=== PATIENT | male | born 1955 | race Caucasian/White ===

== ENCOUNTER 2017-03-10 14:19 | Emergency (ER) | payer MEDICAID ==
[2017-03-10] MEDS ORDERED: predniSONE 20 MG TAB PO ONE (14:45)
[2017-03-10] MEDS ORDERED: FAMOTIDINE 20 MG TAB PO ONE (14:45)
--- NOTE | 2017-03-10 14:55 | EDPHY ---
H & P Time Seen by Provider: 03/10/17 14:26 HPI/ROS: HPI Rash. 61-year-old male by private vehicle. This patient reports that he was admitted to a local hospital recently for a cellulitis involving his right foot. This infection was resistant to Keflex and Bactrim. He was treated with IV Unasyn in the hospital and [facility]. He finished his antibiotics a little more than 2 weeks ago. He reports that he also got a new bed about 2 weeks ago with new sheets. He then developed a rash over his torso and arms about 10 days ago. He describes this as very itchy. He has tried various [id number] medications and creams and with no relief. He has also been taking Benadryl and has had no relief. He reports that the rash primarily involves the back of his arms and his entire back she has had some on the front of his arms and his chest. No associated fever. He was recently down in [place]. Otherwise no travel. Denies any new medications. No change in diet. He has not had a rash like this in the past. ROS: Constitutional: No fever, no chills. No weakness. Eyes: No discharge. No changes in vision. ENT: No sore throat. No nasal congestion or rhinorrhea. Respiratory: No cough. No shortness of breath. Cardiac: No chest pain, no palpitations. Gastrointestinal: No abdominal pain, no vomiting, no diarrhea. Genitourinary: No hematuria. No dysuria or increased frequency with urination. Musculoskeletal: No back pain. No neck pain. No myalgias or arthralgias. Skin: As above. Neurological: No headache. No focal weakness or altered sensation. Past medical history: Hypertension, appendectomy, tonsillectomy, hernia. Primary care is through [facility]. Social history: Here by himself. Nonsmoker. Drinks alcohol socially. Physical Exam: General Appearance: Alert, no distress. Moderately obese. This patient is responding to questions appropriately and in full sentences. This patient appears well-hydrated and well-nourished. Eyes: Pupils equal and round no pallor or injection. No lid edema, erythema or injection. ENT, Mouth: Mucous membranes are moist. The pharyngeal tissues are unremarkable. No edema or swelling. No asymmetry suggestive of abscess. No erythema or exudates. No oral involvement. Respiratory: There are no retractions, lungs are clear to auscultation with good air movement bilaterally. Cardiovascular: Regular rate and rhythm. Tachycardia. No murmur appreciated. Neurological: Motor sensory function is grossly intact. Cranial nerves are normal. Gait is normal. Skin: Warm and dry, erythematous, macular papular rash with pox and some scabbed over areas from him scratching over his entire back, the posterior aspect of his arms and to a lesser degree his abdominal area and chest. It is blanching. I do not appreciate any petechiae. Musculoskeletal: Neck is supple and nontender. No cervical lymphadenopathy. Extremities are symmetrical. All joints range without pain or impingement. I evaluated his right foot and ankle which is the site of his cellulitis in the recent for his recent admission and antibiotic treatment. There is no evidence of cellulitis. He does have a fine pock/vesicular like rash on the medial aspect of his right foot. There is no significant surrounding erythema or warmth. No edema. No evidence of cellulitis. The right foot is neurovascularly intact. Psychiatric: No agitation. No depression. Database: EKG: Imaging: Procedures: Emergency department course: His vital signs were reviewed. He is hypertensive. He is also tachycardic. He tells me that his heart rate is usually fast. He states that he is out of shape and also he has been drinking a lot of caffeine today studying for a test. He does not have a fever. He denies any history of fever. He states that his blood pressures often fluctuate. He has not been compliant with blood pressure medications. 3:35 p.m., patient re-evaluated. Resting comfortably at this time. States he feels better. Blood pressure is 131/94. quality assurance monitor final shows a narrow complex sinus rhythm with ventricular rate of 112. 4:20 p.m., patient re-evaluated. Resting comfortably at this time. He states that he feels better. Not as itchy. His heart rate is still high at 1 tended 112. Narrow complex sinus rhythm on the monitor. He again tells me that he drink a lot of caffeine today and his heart rate usually runs side. I discussed my concern. I discussed observation admission with him. He does not want to do this. He is requesting discharge. Plan will be to have him follow up with a manager nursing, Dr. López Douglas, for evaluation of his rash. I will continue him on oral steroids for another 4 days without taper. I also discussed follow-up with his primary care physician through [facility] for evaluation of his tachycardia and his hypertension. He reassured me that he would do this. Return to emergency department precautions were thoroughly reviewed with him. All of his questions were answered. He was discharged in good condition. Differential Diagnosis: The differential diagnosis on this patient includes but is not limited to hypersensitivity rash, drug reaction. Scabies, cellulitis, zoster unlikely. This represents a partial list of diagnoses considered. These considerations are based on history, physical exam, past history, reassessment and diagnostic testing. Smoking Status: Never smoked Constitutional: Initial Vital Signs Temperature (C) 36.7 C 03/10/17 14:26 Heart Rate 120 H 03/10/17 14:26 Respiratory Rate 14 03/10/17 14:26 Blood Pressure 163/100 H 03/10/17 14:26 O2 Sat (%) 90 L 03/10/17 14:26 O2 Delivery Mode Room Air Allergies/Adverse Reactions: No Known Allergies Allergy (Unverified 03/10/17 14:24) Home Medications: Medication Instructions Recorded Miscellaneous Medical Supply [NO 0 ea MISC AD 08/31/11 HOME MEDS] Lupron 03/10/17 predniSONE [prednisone 20mg (RX)] 60 mg PO DAILY #12 tab 03/10/17 Medical Decision Making - Data Points Medications Given: Discontinued Medications Famotidine (Pepcid) 40 mg PO EDNOW ONE Stop: 03/10/17 14:46 Last Admin: 03/10/17 14:52 Dose: 40 mg Prednisone (Prednisone) 80 mg PO EDNOW ONE Stop: 03/10/17 14:46 Last Admin: 03/10/17 14:52 Dose: 80 mg Departure - Departure Disposition: Home, Routine, Self-Care Clinical Impression: Rash, Hypertension, Tachycardia Condition: Good Instructions: Acute Rash (ED), Hypertension (ED) Additional Instructions: Read and follow provided instructions. It is very important you follow up with your primary care physician at [facility] for evaluation of your elevated heart rate as well as elevated blood pressure. I will also provide you a primary care physician referral at the [facility]. Called Dr. Anthony Douglas of the dermatology service for re-evaluation of your rash this week. Take medication as prescribed through entire course of treatment. You can also continue to take Benadryl at 25-50 mg every 6 hours as needed for itching during the day. This medication will dry your mouth out and make you sleepy. Return to the emergency department immediately as discussed t for worsening rash , lightheadedness, chest pain, shortness of breath, palpitations, fever or other serious concerns. Referrals: López Douglas MD [Medical Doctor] - As per Instructions Jose Miguel Centeno MD [[facility] [place] - As per Instructions [facility],. [Clinic] - As per Instructions Prescriptions: predniSONE [prednisone 20mg (RX)] 60 mg PO DAILY #12 tab
[2017-03-10 16:11] VITALS: PULSE 108; RESP 20; O2SAT 93
[2017-03-10 16:26] VITALS: BP 162/87
[2017-03-10 16:45] VITALS: TEMP 97.7
== END 2017-03-10 16:46 | disposition home or self-care (01) ==
DX: R21 Rash and other nonspecific skin eruption (principal); R00.0 Tachycardia, unspecified; I10 Essential (primary) hypertension

== ENCOUNTER 2017-04-29 21:28 | Inpatient (IN) | payer MEDICAID ==
--- NOTE | 2017-04-29 22:06 | EDPHY ---
H & P Stated Complaint: "infection"/rash R foot/leg, spreading; onset months ago HPI/ROS: HPI CHIEF COMPLAINT: Cellulitis HISTORY OF PRESENT ILLNESS: This patient is 61-year-old male, past medical history for alcoholism, presents emergency room with a rash is progressively getting worse over the past 9 months. However he reports that is acutely worse over the past week. Patient has a rash that is erythematous warmth to the legs bilaterally spreads throughout his legs, abdomen, worse around his periumbilical region back and arms. He states it does itch. Says it hurts more than normal. He denies fever but does have chills. Decided come the emergency room as the rash is acutely worse. He states there is pus coming from his abdominal umbilical rash. Past Medical History: Alcoholism, attention deficit hyperactivity disorder, previous dermatitis Past Surgical History: No recent surgery but has had an appendectomy tonsillectomy Social History: Denies daily use of drugs alcohol tobacco products. Family History: Noncontributory ROS REVIEW OF SYSTEMS: A comprehensive 10 point review of systems is otherwise negative aside from elements mentioned in the history of present illness. Exam Constitutional triage nursing summary reviewed, vital signs reviewed, awake/ alert. Eyes normal conjunctivae and sclera, EOMI, PERRLA. HENT normal inspection, atraumatic, moist mucus membranes, no epistaxis, neck supple/ no meningismus, no raccoon eyes. Respiratory clear to auscultation bilaterally, normal breath sounds, no respiratory distress, no wheezing. Cardiovascular rate normal, regular rhythm, no murmur, no edema, distal pulses normal. Gastrointestinal soft, non-tender, no rebound, no guarding, normal bowel sounds, no distension, no pulsatile mass. Genitourinary no CVA tenderness. Musculoskeletal no midline vertebral tenderness, full range of motion, no calf swelling, no tenderness of extremities, no meningismus, good pulses, neurovascularly intact. Skin diffuse patchy erythematous rash scaly, worse on the bilateral anterior legs. However it is diffuse throughout. It does look somewhat cellulitic on the bilateral legs and around his periumbilical region. Neurologic awake, alert and oriented x 3, AAOx3, moves all 4 extremities equally, motor intact, sensory intact, CN II-XII intact, normal cerebellar, normal vision, normal speech. Psychiatric normal mood/affect. Heme/Lymph/Immune no lymphadenopathy. Differential Diagnosis: Includes but is not limited to in a particular order, cellulitis, MRSA infection, strep infection, dermatitis, vasculitis, scabies, Swiss scabies, super infection scabies Medical Decision Making: Plan for this patient IV establishment blood work, blood cultures, inflammatory markers, dose of IV Unasyn, Solu-Medrol, Benadryl, morphine for pain control and re-evaluate. Re-evaluation: 232: Blood work has been reviewed. No high leukocytosis. Inflammatory markers are elevated. My suspicion is this is most likely dermatitis possibly superimposed infection light less likely scabies. Given the extent of this in inflammation this patient be admitted to the hospital for further treatment of this. I did order him IV Unasyn, Solu-Medrol Benadryl morphine for pain control. He appears well nontoxic will admit for further management of this. Source: Patient - Personal History Current Tetanus/Diphtheria Vaccine: Yes - Medical/Surgical History Hx Asthma: No Hx Chronic Respiratory Disease: No Hx Diabetes: No Hx Cardiac Disease: Yes Hx Renal Disease: No Hx Cirrhosis: No Hx Alcoholism: No Hx HIV/AIDS: No Hx Splenectomy or Spleen Trauma: No Other PMH: PSHx: appy, tonsils, hernia. PMHx: denies - Social History Smoking Status: Never smoked Constitutional: Initial Vital Signs Temperature (C) 36.7 C 04/29/17 21:30 Heart Rate 106 H 04/29/17 21:30 Respiratory Rate 16 04/29/17 21:30 Blood Pressure 128/80 H 04/29/17 21:30 O2 Sat (%) 93 04/29/17 21:30 O2 Delivery Mode Room Air Allergies/Adverse Reactions: No Known Allergies Allergy (Unverified 03/10/17 14:24) Home Medications: Medication Instructions Recorded ALPRAZolam [Xanax 0.5 MG (*)] 0.5 mg PO BID 04/30/17 Amphet Asp and D/Amphet [Adderall 10 mg PO DAILY 04/30/17 10 MG (*)] Dextroamphetamine ER [Dexedrine 15 15 mg PO 5XD 04/30/17 MG (*)] Multivitamins [Multivitamin (*)] 1 each PO DAILY 04/30/17 Naltrexone HCl [Revia 50mg (RX)] 50 mg PO DAILY 04/30/17 Medical Decision Making - Data Points Laboratory Results: Laboratory Results 04/29/17 22:55 04/29/17 22:55 Medications Given: Hydrocodone Bitart/Acetaminophen ([place] 5/325) 1 - 2 tab PO Q4HRS PRN PRN Reason: Pain, Moderate Able to Take PO Stop: 05/10/17 00:26 Last Admin: 04/30/17 22:41 Dose: 2 tab Alprazolam (Xanax) 0.5 mg PO BID [facility] Stop: 10/27/17 20:59 Last Admin: 04/30/17 21:09 Dose: 0.5 mg Clobetasol Propionate (Temovate Ointment) 1 christel TP TID [facility] Stop: 05/10/17 15:59 Last Admin: 04/30/17 21:09 Dose: 1 christel Dextroamphetamine Sulfate (Dexedrine) 15 mg PO 5XD [facility] Stop: 10/27/17 17:59 Last Admin: 04/30/17 21:09 Dose: 15 mg Enoxaparin Sodium (Lovenox) 40 mg SC DAILY [facility] Stop: 10/27/17 08:59 Last Admin: 04/30/17 10:48 Dose: 40 mg Potassium Chloride (Klor-Con) 10 meq PO DAILY MANAS Stop: 10/27/17 17:29 Last Admin: 04/30/17 18:31 Dose: 10 meq Discontinued Medications Diphenhydramine HCl (Benadryl Injection) 25 mg IVP EDNOW ONE Stop: 04/29/17 22:28 Last Admin: 04/29/17 23:10 Dose: 25 mg Furosemide (Lasix) 40 mg PO ONCE ONE Stop: 04/30/17 17:26 Last Admin: 04/30/17 18:31 Dose: 40 mg Sodium Chloride (Ns) 1,000 mls @ 0 mls/hr IV EDNOW ONE; Wide Open PRN Reason: Protocol Stop: 04/29/17 22:25 Last Admin: 04/29/17 23:05 Dose: 1,000 mls Ampicillin Sodium/Sulbactam (Sodium 3 gm/ Sodium Chloride) 100 mls @ 200 mls/ hr IV EDNOW ONE PRN Reason: Protocol Stop: 04/29/17 22:56 Last Admin: 04/29/17 23:25 Dose: 100 mls Sodium Chloride (Ns) 1,000 mls @ 125 mls/hr IV CONT MANAS Stop: 10/27/17 00:29 Last Admin: 04/30/17 01:11 Dose: 1,000 mls Ampicillin Sodium/Sulbactam (Sodium 1.5 gm/ Sodium Chloride) 50 mls @ 200 mls/ hr IV Q6H MANAS PRN Reason: Protocol Stop: 05/30/17 04:59 Last Admin: 04/30/17 10:54 Dose: 50 mls Methylprednisolone Sodium Succinate (Solu-Medrol) 125 mg IVP EDNOW ONE Stop: 04/29/17 22:28 Last Admin: 04/29/17 23:12 Dose: 125 mg Morphine Sulfate (Morphine) 4 mg IVP EDNOW ONE Stop: 04/29/17 22:28 Last Admin: 04/29/17 23:13 Dose: 4 mg Departure - Departure Disposition: [facility] Clinical Impression: Dermatitis Cellulitis Qualifiers: Site of cellulitis: unspecified site Qualified Code(s): L03.90 - Cellulitis, unspecified Condition: Fair
[2017-04-29] MEDS ORDERED: NS 1,000 ML IV ONE (22:24)
[2017-04-29] MEDS ORDERED: methylPREDNISolone SOD SUCC 125 MG/2 ML VIAL IVP ONE (22:27)
[2017-04-29] MEDS ORDERED: AMPICILLIN/SULBACTAM 3 GM in NS 100 ML IV ONE (22:27)
[2017-04-29 23:07] LABS: ABSOLUTE IMMATURE GRANULOCYTES 0.18 10^3/uL (0.00-0.10); ADD DIFF? NO; ADD MORPH? NO; ADD SCAN? NO; ATYPICAL LYMPHOCYTE FLAG 10 (0-99); FRAGMENT RBC FLAG 0 (0-99); HEMATOCRIT 44.6 % (40.0-51.0); HEMOGLOBIN 15.6 g/dL (13.7-17.5); LEFT SHIFT FLG 10 (0-99); LIPEMIA HEMOLYSIS FLAG 90 (0-99); MEAN PLATELET VOLUME 10.1 fL (8.7-11.7); PLATELET CLUMPS FLAG 0 (0-99); PLATELET COUNT 210 10^3/uL (150-400); RED BLOOD CELL COUNT 4.46 10^6/uL (4.40-6.38); RED CELL DISTRIBUTION WIDTH 13.4 % (11.5-15.2)
[2017-04-29 23:16] LABS: SEDIMENTATION RATE 9 MM/HR (0-20)
[2017-04-29 23:17] LABS: INR 1.07 (0.83-1.16); PROTIME(PATIENT) 13.8 SEC (12.0-15.0)
[2017-04-29 23:18] LABS: APTT 32.5 SEC (23.0-38.0)
[2017-04-29 23:21] LABS: ALANINE AMINOTRANSFERASE 30 IU/L (21-72); ALKALINE PHOSPHATASE 70 IU/L (38-126); ANION GAP 11 mEq/L (8-16); ASPARTATE AMINOTRANSFERASE 36 IU/L (17-59); BILIRUBIN-CONJUGATED 0.3 mg/dL (0.0-0.5); BILIRUBIN-UNCONJUGATED 0.7 mg/dL (0.0-1.1); C-REACTIVE PROTEIN 52.6 mg/L (<10.0); CALCIUM 8.6 mg/dL (8.5-10.4); CARBON DIOXIDE 25 mEq/l (22-31); CHLORIDE 99 mEq/L (97-110); CREATININE 0.9 mg/dL (0.7-1.3); GLOMERULAR FILTRATION RATE > 60; GLUCOSE 95 mg/dL (70-100); POTASSIUM 4.3 mEq/L (3.5-5.2); SODIUM 135 mEq/L (134-144); SPECIMEN HEMOLYSIS 124; TOTAL PROTEIN 6.8 g/dL (6.3-8.2)
[2017-04-29 23:40] LABS: PROCALCITONIN 0.09 ng/mL (0.02-0.10)
[2017-04-30] MEDS ORDERED: diphenhydrAMINE 25 MG CAP PO PRN (00:27)
[2017-04-30] MEDS ORDERED: ACETAMINOPHEN 325 MG TAB PO PRN (00:27)
[2017-04-30] MEDS ORDERED: LORazepam 0.5 MG TAB PO PRN (00:27)
[2017-04-30] MEDS ORDERED: ONDANSETRON 4 MG/2 ML VIAL IVP PRN (00:27)
[2017-04-30] MEDS ORDERED: NS 1,000 ML IV SCH (00:30)
[2017-04-30] MEDS: HYDROCODONE/APAP 5/325 TAB PO PRN ×4 (01:49→22:41)
[2017-04-30] MEDS: AMPICILLIN/SULBACTAM 1.5 GM in NS 50 ML IV SCH ×2 (05:13→10:54)
[2017-04-30] MEDS ORDERED: hydrOXYzine HCL 25 MG TAB PO PRN (05:14)
--- NOTE | 2017-04-30 08:06 | PDGENHP ---
History and Physical - Chief Complaint Rash to legs and abdomen - History of Present Illness Source - patient able to provide history. He is a little tangential but redirectable and overall history given remains consistent. EMR reviewed and case discussed with ED provider. HPI - 61 yo M with pmhx significant for remote etoh dependence, obesity, ADHD who presents to the ED with complaints increasing rash, redness to R>L leg and abdomen. Patient reports itching at rash sites and drainage from site at umbilicus. He denies any fevers/chills. he reports his rash has been on going for the past 9 months however in the last 1 week patient reports rash has extended upward to include abdomen and hands in addition to worsening on his lower legs. He reports developing small pustules before the drainage started at his umbilicus. Patient with history of umbilical hernia repair remotely. no known postop wound infection history. Patient reports history of impetigo in his youth but has otherwise not had issues with abscess or rashes until 9 months ago. Patient reports he was hospitalized previously and prescribed an oral antibiotic and steroid however the antibiotic was escribed and so he only took the antibiotic. He reports worsening of his rash. I am unable to clarify with the patient how long ago this was. Patient states he also used a topical antibiotic and antifungal with some improvement in his rash but it is unclear how long patient stayed on this therapy or if he was able to be compliant. History Information - Allergies/Home Medication List Allergies/Adverse Reactions: No Known Allergies Allergy (Unverified 03/10/17 14:24) Home Medications: NK [No Known Home Meds] 04/29/17 [Last Taken Unknown] I have personally reviewed and updated: family history, medical history, social history, surgical history - Past Medical History Additional medical history: remote hx etoh. ADHD. chronic rash. obesity - Surgical History Additional surgical history: Appendectomy. Tonsillectomy and Adenoidectomy. umbilical hernia repair - Family History Additional family history: denies DM, HTN. father - pacreatic cancer (advanced age). mother - CVA (advanced age) - Social History Smoking Status: Never smoked Alcohol Use: Sober (quit "years" ago) Drug Use: None Additional social history: Lives alone. COR - FULL. Review of Systems Review of Systems: ROS: 10pt was reviewed & negative except for what was stated in HPI & below Constitutional: Denies: chills, fever, malaise EENMT: Reports: nose congestion (chronic, reports right nostril with some bleeding resolved yesterday. ). Denies: ear pain, blurred vision, eye pain, sore throat Cardiac: Denies: chest pain, edema, palpitations Respiratory: Reports: no symptoms. Denies: cough, shortness of breath Gastrointestinal: Reports: no symptoms, abdominal pain (superficial abdominal pain no abdominal aching. ). Denies: vomitting, diarrhea, nausea Genitourinary: Reports: other (reports urine is darker but unsure if any blood. ). Denies: dysuria, hematuria Muscolosketal: Reports: joint pain (chronic arthritis). Denies: muscle pain Skin: Reports: change in color, rash (see hpi.). Denies: lesions Neurological: Reports: emotional problems (ADHD), paresthesia ("burning" at rash sites. ). Denies: anxiety, depressed, headache, weakness Physical Exam Physical Exam: Selected Entries 04/29/17 21:30 Blood Pressure Automatic Method Heart Rate 106 H Respiratory 16 Rate O2 Sat (%) 93 Temperature (C) 36.7 C Blood Pressure 128/80 H Mean Arterial 96 Pressure (MAP) O2 Delivery Room Air Mode Temperature Oral Source Temp Pulse Resp BP Pulse Ox 36.8 C 106 H 18 124/79 H 89 L 04/30/17 03:35 04/30/17 03:35 04/30/17 03:35 04/30/17 03:35 04/30/17 03:35 Constitutional: no apparent distress, chronically ill appearing, obese, uncomfortable, unkempt Eyes: PERRL, anicteric sclera, EOMI Ears, Nose, Mouth, Throat: moist mucous membranes, other (no nasal discharge), No oral thrush, No poor dentition Cardiovascular: regular rate and rhythym, no murmur, rub, or gallop, edema ( trace feet/lower legs) Peripheral Pulses: 2+: dorsalis-pedis (R), dorsalis-pedis (L) Respiratory: no respiratory distress, no rales or rhonchi, clear to auscultation Gastrointestinal: normoactive bowel sounds, no palpable masses, tenderness ( superficial ttp over umbilicus at rash site. no TTP with deep palpation but limited 2/2 patient protuberant obese abdomen. ) Skin: warm, erythema, rash (rash with punctate erythematous lesions clustered some with scabbing some with evidence of excoriations. minimal amount of crusting and drainage at the umbilicus but nothing expressible for possible swab collection. . no evidence of intertriginous lesions with tracking (i.e. scabies). patient with various patches bilateral feet, lower legs scant isolated spots upper legs. fingers/hands. face without similar lesions but some erythema homogenously to face stopping just below the chin line. no induration or fluctuance appreciated at any of the sites. ), No mottled, No pressure ulcer Musculoskeletal: full muscle strength, normal joint ROM, No no muscle tenderness , No generalized weakness Neurologic: AAOx3, sensation intact bilaterally, CN II-XII Intact, other ( nonfocal. ), No weakness Psychiatric: not encephalopathic, anxious, other (patient is tangential in conversation but redirectable. ), No flat affect, No poor insight, No poor judgement, No poor memory Lab Data & Imaging Review 04/29/17 22:55 04/29/17 22:55 WBC 9.15 10^3/uL (3.80-9.50) 04/29/17 22:55 RBC 4.46 10^6/uL (4.40-6.38) 04/29/17 22:55 Hgb 15.6 g/dL (13.7-17.5) 04/29/17 22:55 Hct 44.6 % (40.0-51.0) 04/29/17 22:55 MCV 100.0 fL (81.5-99.8) H 04/29/17 22:55 MCH 35.0 pg (27.9-34.1) H 04/29/17 22:55 MCHC 35.0 g/dL (32.4-36.7) 04/29/17 22:55 RDW 13.4 % (11.5-15.2) 04/29/17 22:55 Plt Count 210 10^3/uL (150-400) 04/29/17 22:55 MPV 10.1 fL (8.7-11.7) 04/29/17 22:55 Neut % (Auto) 58.1 % (39.3-74.2) 04/29/17 22:55 Lymph % (Auto) 14.3 % (15.0-45.0) L 04/29/17 22:55 [place] % (Auto) 12.8 % (4.5-13.0) 04/29/17 22:55 Eos % (Auto) 11.7 % (0.6-7.6) H 04/29/17 22:55 Baso % (Auto) 1.1 % (0.3-1.7) 04/29/17 22:55 Nucleat RBC Rel Count 0.0 % (0.0-0.2) 04/29/17 22:55 Absolute Neuts (auto) 5.32 10^3/uL (1.70-6.50) 04/29/17 22:55 Absolute Lymphs (auto) 1.31 10^3/uL (1.00-3.00) 04/29/17 22:55 Absolute Monos (auto) 1.17 10^3/uL (0.30-0.80) H 04/29/17 22:55 Absolute Eos (auto) 1.07 10^3/uL (0.03-0.40) H 04/29/17 22:55 Absolute Basos (auto) 0.10 10^3/uL (0.02-0.10) 04/29/17 22:55 Absolute Nucleated RBC 0.00 10^3/uL (0-0.01) 04/29/17 22:55 Immature Gran % 2.0 % (0.0-1.1) H 04/29/17 22:55 Immature Gran # 0.18 10^3/uL (0.00-0.10) H 04/29/17 22:55 ESR 9 MM/HR (0-20) 04/29/17 22:55 PT 13.8 SEC (12.0-15.0) 04/29/17 22:55 INR 1.07 (0.83-1.16) 04/29/17 22:55 APTT 32.5 SEC (23.0-38.0) 04/29/17 22:55 VBG Lactic Acid 1.5 mmol/L (0.7-2.1) 04/29/17 22:55 Sodium 135 mEq/L (134-144) 04/29/17 22:55 Potassium 4.3 mEq/L (3.5-5.2) 04/29/17 22:55 Chloride 99 mEq/L (97-110) 04/29/17 22:55 Carbon Dioxide 25 mEq/l (22-31) 04/29/17 22:55 Anion Gap 11 mEq/L (8-16) 04/29/17 22:55 BUN 16 mg/dL (7-23) 04/29/17 22:55 Creatinine 0.9 mg/dL (0.7-1.3) 04/29/17 22:55 Estimated GFR > 60 04/29/17 22:55 Glucose 95 mg/dL (70-100) 04/29/17 22:55 Calcium 8.6 mg/dL (8.5-10.4) 04/29/17 22:55 Total Bilirubin 1.0 mg/dL (0.1-1.4) 04/29/17 22:55 Conjugated Bilirubin 0.3 mg/dL (0.0-0.5) 04/29/17 22:55 Unconjugated Bilirubin 0.7 mg/dL (0.0-1.1) 04/29/17 22:55 AST 36 IU/L (17-59) 04/29/17 22:55 ALT 30 IU/L (21-72) 04/29/17 22:55 Alkaline Phosphatase 70 IU/L (38-126) 04/29/17 22:55 C-Reactive Protein 52.6 mg/L (<10.0) H 04/29/17 22:55 Total Protein 6.8 g/dL (6.3-8.2) 04/29/17 22:55 Albumin 4.0 g/dL (3.5-5.0) 04/29/17 22:55 Procalcitonin 0.09 ng/mL (0.02-0.10) 04/29/17 22:55 Specimen Hemolysis 124 04/29/17 22:55 Assessment & Plan Assessment: 61 yo M with pmhx significant for acute on chronic rash/itching/leg redness. #Rash - ddx including cellulitis (bacterial vx less likely fungal) vs. dermatitis vs less likely vasculitis. vistaril prn for pruritus. unasyn and plan as noted below. #Cellulitis - possibly even secondary. patient with multiple excoriations. coverage with unasyn at this time. if any further drainage from umbilicus develops will obtain a swab. elevated CRP. given patient has had multiple trials of antibiotics (although compliance rate is unclear at this time) will admit for IV antibiotics. will also request infectious disease assistance and recommendations. MRSA nasal swab obtained but patient denies previous hx of MRSA. will switch to Vancomycin if positive or as per recommendations of ID. #ADHD - not currently on any medications. redirectable in conversation. #obesity (BMI 30.8) - mobilize. #remote hx etoh - no evidence of relapse or withdrawal. monitor FEN - IVF overnight. advance diet as tolerated. Electrolyte replacement prn. diet as tolerated. PPX - SCDs. lovenox. COR - FULL. Dispo - admit to Medical as inpatient 2/2 hx of failed rounds of treatment. anticipate > 2 midnight stay.
[2017-04-30 08:45] LABS: % IMMATURE GRANULYOCYTES 1.3 % (0.0-1.1); ABSOLUTE IMMATURE GRANULOCYTES 0.07 10^3/uL (0.00-0.10); ADD DIFF? NO; ADD MORPH? NO; ADD SCAN? NO; ATYPICAL LYMPHOCYTE FLAG 10 (0-99); FRAGMENT RBC FLAG 0 (0-99); HEMATOCRIT 41.8 % (40.0-51.0); HEMOGLOBIN 14.2 g/dL (13.7-17.5); LEFT SHIFT FLG 10 (0-99); LIPEMIA HEMOLYSIS FLAG 90 (0-99); MEAN CELL HEMOGLOBIN 33.7 pg (27.9-34.1); MEAN CELL VOLUME 99.3 fL (81.5-99.8); MEAN PLATELET VOLUME 10.3 fL (8.7-11.7); PLATELET CLUMPS FLAG 0 (0-99); PLATELET COUNT 187 10^3/uL (150-400); RED BLOOD CELL COUNT 4.21 10^6/uL (4.40-6.38); RED CELL DISTRIBUTION WIDTH 13.2 % (11.5-15.2)
[2017-04-30 09:08] LABS: ANION GAP 14 mEq/L (8-16); CALCIUM 8.2 mg/dL (8.5-10.4); CARBON DIOXIDE 22 mEq/l (22-31); CHLORIDE 102 mEq/L (97-110); CREATININE 0.8 mg/dL (0.7-1.3); GLOMERULAR FILTRATION RATE > 60; GLUCOSE 232 mg/dL (70-100); POTASSIUM 3.8 mEq/L (3.5-5.2); SODIUM 138 mEq/L (134-144)
--- NOTE | 2017-04-30 10:19 | PDMN ---
Medical Necessity Medical necessity: est los>2mn for rash, itching , LE redness, multiple excoriations, r/t cellulitis (bacterial vs fungal) vs dermatitis vs vasculitis , , w/ falure of OP treatment; admit for IV abx, ID consult; comorbid ADHD, obestity; per H&P
[2017-04-30] MEDS: ENOXAPARIN 40 MG/0.4 ML SYR SC SCH (10:48)
--- NOTE | 2017-04-30 11:51 | ASMTCASEMG ---
Living Arrangements What is your living Answers: Alone arrangement? Who do you live with? Type Of Residence What kind of residence do Answers: Homeless you live in? Discharge Plan Comments Coordination Status Comments Notes: Pt is a 61 y/o man admitted for cellulitis. PT and OT have been ordered. Needs are TBD at this time. CM to follow. Date Signed: 04/30/2017 11:50 AM Electronically Signed By:ERLIN Borja
[2017-04-30 12:11] LABS: COLOR YELLOW; LEUKOCYTE ESTERASE,URINE NEGATIVE (NEGATIVE); NITRITE,URINE NEGATIVE (NEGATIVE)
[2017-04-30 12:39] LABS: PHENCYCLIDINE URINE BCH < 6 ng/ml (NEGATIVE); PHENCYCLIDINE URINE BCH NEGATIVE (NEGATIVE); TETRAHYDROCANNABINOL URINE < 5 ng/mL (NEGATIVE); TETRAHYDROCANNABINOL URINE NEGATIVE (NEGATIVE)
[2017-04-30 14:48] LABS: RBC,URINE NONE SEEN /hpf (0-3); WBC,URINE NONE SEEN /hpf (0-3)
[2017-04-30 17:03] VITALS: RESP 18
[2017-04-30] MEDS ORDERED: FUROSEMIDE 40 MG TAB PO ONE (17:25)
[2017-04-30] MEDS: CLOBETASOL 0.05% 15 GM OINT TUBE TP SCH ×2 (17:30→21:09)
[2017-04-30] MEDS ORDERED: HYDROCORTISONE 2.5% 30 GM CRTUBE TP SCH (17:30)
--- NOTE | 2017-04-30 17:32 | HOSPPROG ---
Hospitalist Progress Note Assessment/Plan: Prolonged service in addition to the time spent originally with the history and physical by Dr. Marianna Peoples, direct patient care, [id number] with patient at bedside for 40 minutes from 1:00 p.m. until 1:40 p.m., addressing the following: -patient's physical exam reveals bilateral lower extremity edema with hyperpigmentation, blanchable skin, flaking, concentrated around the dorsal surfaces of the feet and the ankles with patchy distribution, as well as located over the umbilicus with mild dominguez crusting, scattered patches on the back, with ulceration secondary to scratching, no crackles in the pulmonary bases, abdomen is moderately distended but nontender -obtained outside records including discharge summary by Dr. Samir Reyes from 02/18/17, reports that the patient had presumed dermatitis of his bilateral lower extremities, treated effectively with topical steroids as well as Unasyn for possible bacterial super infection and MSSA positive swab, discharged home on total 10 days of Augmentin, echocardiogram demonstrating ejection fraction 65 -70%, mild LVH, no right ventricular dysfunction, right lower extremity ultrasound demonstrating no DVT, liver ultrasound demonstrating hepatic steatosis, suspicion that the patient concealed his alcohol use with positive alcohol level on presentation and alcohol likely contributing to his ongoing lower extremity edema, discharged home with oral Lasix and lisinopril -discussed with Dr. Cassidy Holman, we both agree that the patient appears to have extensive dermatitis as opposed to an actual cellulitis although it is certainly possible that he has a bacterial superinfection of his disrupted skin barrier -stopping antibiotics at this time, applying high potency topical steroid, gauge effect -initiate oral Lasix, supplemental potassium, monitor daily electrolytes -no indication to repeat echo or lower extremity ultrasound as these were obtained within the last 2 months and patient's condition has likely worsened secondary to not applying topical steroids at home -recommend outpatient follow up with his primary psychiatrist, Dr. Tirado, to address his concomitant use of benzodiazepines and possibly alcohol, as well as his extensive use of prescription amphetamines -the patient reports that he has an outpatient appointment with database management system specialist next week, will hold on systemic steroids and continue on high potency topicals until at time Objective: Vital Signs Temp Pulse Resp BP Pulse Ox 36.4 C 109 H 18 133/71 H 91 L 04/30/17 16:56 04/30/17 16:56 04/30/17 16:56 04/30/17 16:56 04/30/17 16:56 Microbiology 04/30/17 11:42 MRSA Culture - Final Nasal, Sinus - Swab Laboratory Results 04/30/17 08:09 04/30/17 08:09 04/29/17 04/30/17 05/01/17 05:59 05:59 05:59 Intake Total 650 Output Total 500 Balance 650 -500 PT 13.8 SEC (12.0-15.0) 04/29/17 22:55 INR 1.07 (0.83-1.16) 04/29/17 22:55 ICD10 Worksheet Patient Problems: Problems Problem Status Onset Cellulitis Acute
[2017-04-30] MEDS: POTASSIUM CL 10 MEQ TAB PO SCH (18:31)
[2017-04-30] MEDS: DEXTROAMPHETAMINE ER 15 MG CAP PO SCH ×2 (18:31→21:09)
[2017-04-30] MEDS: ALPRAZolam 0.25 MG TAB PO SCH (21:09)
[2017-05-01] MEDS: HYDROCODONE/APAP 5/325 TAB PO PRN ×2 (04:10→13:13)
--- NOTE | 2017-05-01 04:48 | GCON ---
[f rep st] CONSULTATION INFECTIOUS DISEASE CONSULTATION DATE OF CONSULTATION: 04/30/2017 REASON FOR CONSULTATION: Rash on lower extremity and abdomen, query infection. HISTORY OF PRESENT ILLNESS: 61-year-old male with history of alcohol dependence , obesity, and attention-deficit, hyperactivity disorder who has had multiple presentations related to a bilateral lower extremity rash. Patient has undergone a multitude of treatments, topical antibiotics and steroids, oral antibiotics, IV antibiotics, as well as systemic antibiotics, without resolution of his symptoms. Patient reports that the rash on his legs and his umbilicus is extremely pruritic, and he itches it regularly. Patient presented to the emergency room yesterday for ongoing concerns related to this rash. In the emergency room, patient was found to be afebrile with a normal white count. Differential diagnosis considered was cellulitis, underlying skin condition with superimposed cellulitis, and underlying skin condition. Patient was admitted to the hospital, and started on IV Unasyn, and given 1 dose of Solu- Medrol. ALLERGIES: NKDA. PAST MEDICAL HISTORY: Alcohol use, ADHD, chronic rash, obesity. PAST SURGICAL HISTORY: Appendectomy, tonsillectomy, adenectomy, umbilical hernia repair. FAMILY HISTORY: Positive for stroke and pancreatic cancer. Denies diabetes, hypertension. SOCIAL HISTORY: Patient has an apartment. Quit alcohol years ago. No tobacco. No drug use. He is single. MEDICATIONS: Include: Unasyn 1 g IV q.6, Tylenol as needed, [place] as needed, lorazepam, Zofran, hydroxyzine, enoxaparin, Lasix, potassium chloride, alprazolam, Adderall, multivitamin, and naltrexone. REVIEW OF SYSTEMS: A complete 10-point review of systems was performed, and is negative, except as mentioned in the HPI. PHYSICAL EXAMINATION: VITAL SIGNS: Temperature 36.5. He has been afebrile throughout his hospital course. Blood pressure 141/80, respiratory rate 18, saturation 92% on 1 L, heart rate is 96. GENERAL: This is a pleasant, conversive male, slightly tangential. No acute distress. HEENT: Pupils are reactive bilaterally. Oropharynx: Moist mucous membranes. No oral ulcerations. Mild maculopapular rash over the nasolabial fold. NECK: Supple. CARDIOVASCULAR: Regular rate. No murmur. CHEST: Clear to auscultation bilaterally. ABDOMEN: Soft, nontender. Bowel sounds are present. EXTREMITIES : Shows a scaly, cracking, maculopapular eruption, right greater than left, with multiple patchy areas, left upper lateral thigh. He also has a circumferential, maculopapular, scaly eruption at the umbilicus. Pulses were 1 + bilaterally. NEUROLOGIC: He is alert and oriented x4, moving all 4 extremities equally. LABORATORY: White count on admission 9.1, today 5.3; hematocrit 41; platelets 187; 85% neutrophils. UA was negative. Creatinine 0.8. LFTs were normal. CRP 52. Blood cultures collected 04/29/2017 are pending. IMAGING: None performed. ASSESSMENT AND PLAN: This is a 61-year-old male with a chronic skin eruption on his lower extremities and michelle umbilicus, as well as scattered on his upper extremities and back. This looks most consistent with eczema. Could consider asteatotic eczema, as well as underlying psoriasis. Suspect component of venous insufficiency. No evidence of infection, based on my examination today. Further, there was no elevated white count and no fever. Case was reviewed with Dermatology which would recommend a clobetasol cream applied 3 times daily and skin repair daily moisturizer on top of steroid cream twice daily. This is to be recommended for 10 days, and would recommend followup with Dermatology as an outpatient. Would discontinue Unasyn therapy. Thank you for this consultation. I will continue to follow on a daily basis. /[id number]/MODL MTDD
[2017-05-01 04:59] VITALS: TEMP 97.9
[2017-05-01 05:06] LABS: ANION GAP 13 mEq/L (8-16); CALCIUM 8.8 mg/dL (8.5-10.4); CARBON DIOXIDE 24 mEq/l (22-31); CHLORIDE 103 mEq/L (97-110); CREATININE 0.8 mg/dL (0.7-1.3); GLOMERULAR FILTRATION RATE > 60; GLUCOSE 119 mg/dL (70-100); POTASSIUM 4.2 mEq/L (3.5-5.2); SODIUM 140 mEq/L (134-144)
[2017-05-01] MEDS: DEXTROAMPHETAMINE ER 15 MG CAP PO SCH ×2 (06:03→12:49)
[2017-05-01 08:50] VITALS: PULSE 94; O2SAT 98
[2017-05-01] MEDS ORDERED: FUROSEMIDE 40 MG TAB PO SCH (09:00)
[2017-05-01] MEDS ORDERED: ADDERALL 20 MG TAB PO SCH (09:00)
[2017-05-01] MEDS ORDERED: MULTIVITAMINS 1 EACH TAB PO SCH (09:00)
[2017-05-01] MEDS ORDERED: NALTREXONE HCL 50 MG TAB PO SCH (09:00)
[2017-05-01] MEDS: ALPRAZolam 0.25 MG TAB PO SCH (09:02)
[2017-05-01] MEDS: POTASSIUM CL 10 MEQ TAB PO SCH (09:03)
[2017-05-01] MEDS: CLOBETASOL 0.05% 15 GM OINT TUBE TP SCH (09:04)
[2017-05-01] MEDS: ENOXAPARIN 40 MG/0.4 ML SYR SC SCH (09:05)
--- NOTE | 2017-05-01 10:40 | PCMIDPN ---
Assessment/Plan: #Severe Eczema and possible underlying psoriasis. No evidence of active super infection, patient is at risk for infection in till a healed. Also suspect a component of venous insufficiency. Significant improvement in scale --clobetasol cream applied 3 times daily and skin repair daily moisturizer ( such as Cetaphil) on top of steroid cream twice daily. This is to be recommended for 10 days --DC on Atarax consider scheduling doses to control itching. Scratching certainly contributing to chronic nature of eruption. --may need to consider compression stockings at some point in the future --follow up with ID as needed. Put my number in discharge paperwork Time > 35 min spent reviewing etiology of lower extremity rash, lack of superimposed infection. 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 Objective: Vital Signs Temp Pulse Resp BP Pulse Ox 36.6 C 94 18 150/107 H 98 05/01/17 08:00 05/01/17 08:00 05/01/17 08:00 05/01/17 08:00 05/01/17 08:00 Microbiology 04/30/17 11:42 MRSA Culture - Final Nasal, Sinus - Swab Laboratory Results 04/30/17 08:09 05/01/17 04:10 04/30/17 05/01/17 05/02/17 05:59 05:59 05:59 Intake Total 650 800 Output Total 2100 Balance 650 -1300 ESR 9 MM/HR (0-20) 04/29/17 22:55 C-Reactive Protein 52.6 mg/L (<10.0) H 04/29/17 22:55 - Physical Exam General Appearance: alert, no apparent distress, obese EENT: No scleral icterus Respiratory: No accessory muscle use Skin: rash (Maculopapular purplish eruption bilateral lower extremities in a stocking distribution with satellite lesions more proximal on the left leg. Also with circumferential maculopapular eruption on umbilicus) Neuro/Psych: alert, normal mood/affect, oriented x 3 ICD10 Worksheet Patient Problems: Problems Problem Status Onset Cellulitis Acute Dermatitis Acute
[2017-05-01 14:20] VITALS: BP 152/103
--- NOTE | 2017-05-01 14:24 | ASMTCMCOM ---
CM Note CM Note Notes: CM met w/ pt for dispo planning. Pt reports when he initially met w/ the physical therapist he minimized his needs in fears that he would be kept at the hospital longer. Pt reports that it would be helpful to have HC. Pt is being discharged w/ [facility]; PT, OT, RN. Pt reports that his friend will pick him up. [facility] referral made and will start services on Saturday. Pt is okay w/ services starting on Saturday. CM provided MARK Talbot w/ phone number to give report to [facility]. CM available for changes. Date Signed: 05/01/2017 02:24 PM Electronically Signed By:ERLIN Borja
--- NOTE | 2017-05-01 14:56 | PDIAF ---
- Diagnosis Diagnosis: Dermatitis, Edema, HTN Code Status: Full Code - Medication Management Discharge Medications: Medications to Continue on Transfer ALPRAZolam [Xanax 0.5 MG (*)] 0.5 mg PO BID 04/30/17 [Last Taken 04/29/17 09:00] Amphet Asp and D/Amphet [Adderall 10 MG (*)] 10 mg PO DAILY 04/30/17 [Last Taken 04/29/17] Dextroamphetamine ER [Dexedrine 15 MG (*)] 15 mg PO 5XD 04/30/17 [Last Taken ] Multivitamins [Multivitamin (*)] 1 each PO DAILY 04/30/17 [Last Taken Unknown] Naltrexone HCl [Revia] 50 mg PO DAILY 04/30/17 [Last Taken 04/29/17] Clobetasol 0.05% [Temovate Ointment] 1 christel TP TID #1 tube 05/01/17 [Last Taken Unknown] Furosemide [Lasix 40 MG (*)] 40 mg PO BID@0900,1500 #60 tab 05/01/17 [Last Taken Unknown] Potassium Cl [Klor-Con 10 meq (RX)] 10 meq PO DAILY #30 tab 05/01/17 [Last Taken Unknown] Vit E Acet/Glycerin/Dimeth/H2o [Cetaphil Moisturizing Lot] 236 ml TP BID #1 tube 05/01/17 [Last Taken Unknown] hydrOXYzine HCL [hydrOXYzine HCL (RX)] 25 mg PO Q6HRS PRN #40 tab 05/01/17 [ Last Taken Unknown] Assisted Antibiotics: NA Discharge Medications: Refer to the Discharge Home Medication list for PRN reason. PICC Care - Routine: N/A - Orders Services needed: Home Care, Registered Nurse, Physical Therapy, Occupational Therapy Home Care Face to Face: I certify that this patient was under my care and that I had the required [id number] encounter meeting the encounter requirements on the discharge day. My findings support the fact that the patient is homebound as defined in Home Care Face to Face Continued: CMS Chapter 7 Medicare Benefits Manual 30.1.1 , The condition of the patient is such that there exists a normal inability to leave home and consequently, leaving home would require a considerable and taxing effort. Isolation Type: None Oxygen: NA Diet Recommendation: no restrictions on diet Weigh Patient: weekly Campos: Not applicable Wound Care Instructions: local wound care to bilateral ankles, ensure patient is applying steroid cream, followed by moisturizer on a daily basis - Labs/Radiology BMP Date: 05/06/17 Call or Fax Lab and Imaging Results to: Dr. Reyes - Follow Up Care Current Providers and Referrals: RHODA CONTRERAS [Other] - As per Instructions Cassidy Holman MD [Medical Doctor] - (as needed) Samir Reyes MD [Medical Doctor] -
--- NOTE | 2017-05-01 15:44 | ASDISCHSUM ---
Discharge Information Plan Status:Home with Home Health Medically Cleared to Leave:04/30/2017 Discharge Date:05/01/2017 03:13 PM CM D/C Disposition: ADT D/C Disposition:Home Health Service Projected Discharge Date:05/01/2017 11:00 AM Transportation at D/C: Discharge Delay Reason: Follow-Up Date:05/01/2017 11:00 AM Discharge Slot: Final Diagnosis: Placement Information Referral Type:*Home Health Care Services Referral ID:[id number] [facility] Address 1:[address] Address 2: City:[place] Selection Factors: State:[place] Patient Contact Information Contact Name:OMAR Relationship:Friend Address: Work Phone: City:[place] Alternate Phone: State/Zip Code:[place] [address] Email: Financial Information Financial Class: Primary Plan Desc:MEDICA[employer] [place] Primary Plan Number:[id number] Secondary Plan Desc: Secondary Plan Number: Assessment Information [facility] Initial CM Assessment Living Arrangements What is your living Answers: Alone arrangement? Who do you live with? Type Of Residence What kind of residence do Answers: Homeless you live in? Discharge Plan Comments Coordination Status Comments Notes: Pt is a 61 y/o man admitted for cellulitis. PT and OT have been ordered. Needs are TBD at this time. CM to follow. Date Signed: 04/30/2017 11:50 AM Electronically Signed By:ERLIN Borja [facility] CM Progress Note CM Note CM Note Notes: CM met w/ pt for dispo planning. Pt reports when he initially met w/ the physical therapist he minimized his needs in fears that he would be kept at the hospital longer. Pt reports that it would be helpful to have HC. Pt is being discharged w/ [facility]; PT, OT, RN. Pt reports that his friend will pick him up. [facility] referral made and will start services on Saturday. Pt is okay w/ services starting on Saturday. provided MARK Talbot w/ phone number to give report to [facility]. CM available for changes. Date Signed: 05/01/2017 02:24 PM Electronically Signed By:RELIN Borja Intervention Information
--- NOTE | 2017-05-01 19:31 | PDDCSUM ---
Discharge Summary Discharge Summary: DISCHARGE SUMMARY FOLLOW-UP ITEMS: Outpatient dermatology appointment Outpatient creatinine BUN and lytes DATE OF ADMISSION: 04/29/2017 DATE OF DISCHARGE: 05/01/2017 DISCHARGE DIAGNOSES: 1. Acute on chronic dermatitis 2. Chronic lower extremity edema 3. Attention deficit hyperactivity disorder and anxiety 4. Suspected alcoholism 5. Suspected chronic hypertension CONSULTATIONS: Infectious Disease PROCEDURES / IMAGING: None CHIEF COMPLAINT: Acute lower extremity pain SUBJECTIVE: Patient reports this pain is significantly improved time discharge PHYSICAL EXAM ON DISCHARGE: Systolic blood pressure is 130, heart rate 90, afebrile overnight, satting well on room air in comma net-1 0.3 L overnight, lower extremities continue demonstrate scaling, dried, mild fissuring, less erythematous than day prior, patient's speech pattern is rapid, with halted phrases, not tangential or scattered LABS ON DISCHARGE: Creatinine 0.8, potassium 4.2, glucose 120, magnesium 2.0, CRP 53 HOSPITAL COURSE BY PROBLEM: The patient presented with acute lower extremity pain in the setting of erythema , scaled, fissuring of lower extremities, and concerns of bacterial superinfection over acute on chronic dermatitis. He was seen in consultation by Infectious Disease, and the determination was that this was most likely an acute worsening of his chronic dermatitis and not a bacterial superinfection. Initially received IV Unasyn, and this was discontinued. He received empiric oral steroids, and these were adjusted to high-dose topical steroid cream, at the direction of an outpatient dermatology curbside consult. They also recommended a topical moisturizers, and these are to be applied immediately after the steroids. We prescribed the patient clobetasol with cetaphil, as well as some as needed oral pain medications. The patient has a scheduled dermatology appointment within the next couple weeks, and we recommend that he continue these medications and be reassessed at that time. We also recommended that he utilize Lasix to treat his underlying chronic lower extremity edema and likely undiagnosed HTN, and 40 mg twice daily with potassium, with outpatient labs, was ordered. Recommend that he establish primary care with Dr. Samir Reyes, who had seen the patient 2 months prior at [facility]. I reviewed Dr. Reyes's discharge summary, which outlined many of the patient's above medical issues, and reported he had an unremarkable echocardiogram, unremarkable lower extremity ultrasound, and consequently these studies were not repeated during this hospitalization. Dr. Reyes also raised concerns regarding patient's alcohol use and concomitant use of Xanax with his Adderall medications for attention deficit hyperactivity disorder and anxiety. Although the patient did deny alcohol use during our hospitalization, he was found conceiving unidentified medication, it is unclear whether he has surreptitiously taking additional anxiolytic medications or benzodiazepines beyond what we believe he is prescribed. Recommend that Dr. Reyes continue to monitor this with the patient also continue to reach out to his primary psychiatrist Dr. Ferguson. DISCHARGE MEDICATIONS: Please see official discharge medication reconciliation sheet in chart , clobetasol 3 times daily, Cetaphil moisturizer twice daily, as needed hydroxyzine, lasix 40mg bid w/ KCL 10mEq. DISCHARGE INSTRUCTIONS: Please schedule outpatient primary care follow-up and follow up with shading painter as scheduled. TIME SPENT: Greater than 30 minutes were spent on direct patient care, as well as discharge planning and preparation.
== END 2017-05-01 15:13 | disposition home health service (06) | DRG 607 ==
LOC: F3E 04-30 00:14
PROVIDERS: ADMIT Family Medicine; ATTEND Family Medicine
DX: L30.9 Dermatitis, unspecified (principal); R60.0 Localized edema; I10 Essential (primary) hypertension; F90.9 Attention-deficit hyperactivity disorder, unspecified type; F41.9 Anxiety disorder, unspecified; E66.9 Obesity, unspecified; F10.21 Alcohol dependence, in remission; Z68.30 Body mass index [BMI] 30.0-30.9, adult
CPT/HCPCS: 80307; 96374; 97161-GP; G0480; J0295; J1200; J1650; J2930